=== PATIENT | male | born 1995 | race Two or more races ===

== ENCOUNTER 2024-12-07 20:47 | Emergency (ER) | payer OTHER ==
[~2024-12-07] VITALS: Ht 165.1 cm; Wt 52.2 kg
[2024-12-07 21:04] VITALS: BP 116/68; TEMP 98.1; O2SAT 98
== END 2024-12-07 21:36 | disposition home or self-care (01) ==
LOC: ER 21:00
DX: M79.645 Pain in left finger(s) (principal)